=== PATIENT | male | born 1980 | race Caucasian/White ===

== ENCOUNTER 2021-12-26 17:17 | Emergency (ER) | payer SELFPAY ==
[~2021-12-26] VITALS: Ht 175.3 cm; Wt 77.0 kg
[2021-12-26] MEDS ORDERED: SODIUM CHLORIDE 0.9% 1,000 ML IV ONE (18:45)
[2021-12-26 19:05] LABS: BASOPHILS % 0.4 % (0.0-2.0); EOSINOPHILS % 0.1 % (0.0-5.0); HEMATOCRIT. 47.4 % (42.0-52.0); HEMOGLOBIN. 15.9 g/dL (14.0-18.0); LYMPHOCYTES % 31.2 % (20.0-50.0); MEAN CORPUSCULAR HEMOGLOBIN 32.3 pg (28.0-32.0); MEAN CORPUSCULAR VOLUME 96.2 fL (80.0-94.0); MEAN PLATELET VOLUME 7.6 fl (7.4-10.4); MONOCYTES % 4.8 % (2.0-8.0); NEUTROPHILS % 63.5 % (40.0-76.0); PLATELET 279 x1000/uL (130-400); RED BLOOD CELL COUNT 4.93 mill/uL (4.7-6.1); RED CELL DISTRIBUTION WIDTH 15.2 % (11.6-14.6)
[2021-12-26 19:21] LABS: CHLORIDE 99 mEq/L (98-107)
[2021-12-26 19:40] LABS: ETHANOL BLOOD 537 mg/dL
[2021-12-27 02:01] VITALS: BP 110/55
== END 2021-12-27 02:02 | disposition home or self-care (01) ==
LOC: ER 17:28 → EDBD 17:28 → ER 12-27 02:02
DX: F10.129 Alcohol abuse with intoxication, unspecified (principal); Y90.8 Blood alcohol level of 240 mg/100 ml or more; G31.89 Other specified degenerative diseases of nervous system; W01.198A Fall on same level from slipping, tripping and stumbling with subsequent striking against other object, initial encounter; Y93.89 Activity, other specified; Y92.89 Other specified places as the place of occurrence of the external cause
CPT/HCPCS: 36415; 70450; 80053; 80320; 85025; 96360; 99285; J7030; G0480

== ENCOUNTER 2021-12-27 03:00 | Emergency (ER) | payer SELFPAY ==
[~2021-12-27] VITALS: Ht 175.3 cm; Wt 70.6 kg
[2021-12-27 03:07] VITALS: BP 140/88
== END 2021-12-27 05:16 | disposition left against medical advice (07) ==
LOC: ER 03:00
DX: Z53.21 Procedure and treatment not carried out due to patient leaving prior to being seen by health care provider (principal)